=== PATIENT | female | born 1995 | race Caucasian/White ===

== ENCOUNTER 2020-11-25 16:45 | Outpatient (REF) | payer BC, SELFPAY ==
--- NOTE | 2020-11-25 14:45 | PAPFT_PTH ---
PATIENT: Nancy Chavez LOC: [facility] U#:[id number] AGE/SX: 25/F ROOM: RE11/25/[address]: Mary Pearl : 1995 BED: DIS: 11/25/2020 SPEC #: [id number] RECD: 11/26/20 13:00 STATUS: RANI VELASQUEZ #: [id number] YUKI: 11/25/20 14:[address]: Mary Pearl DEPT: [facility] Cytology RECD BY: Lilly Newton ENTERED: 11/26/20 13:00 SP TYPE: PAPFT OTHR DR: Frank Mcdaniel Tissues: 1 - CX/ENDOCX FOR PAP SMEARS Procedures: PAP THIN PREP/[facility] Screening Comments: [id number]
== END 2020-11-25 16:46 | disposition home or self-care (01) ==
LOC: NCHCN 16:45
PROVIDERS: Visit Provider Family Medicine
DX: Z12.4 Encounter for screening for malignant neoplasm of cervix (principal); Z00.00 Encounter for general adult medical examination without abnormal findings
CPT/HCPCS: 88142